=== PATIENT | male | born 1930 | race Caucasian/White ===

== ENCOUNTER → 2017-01-13 | Outpatient (CLI) | payer OTHER | LOC: FIMAGING 14:58 | PROVIDERS: ATTEND Nurse Practitioner Family | DX: M25.511 Pain in right shoulder (principal) ==

== ENCOUNTER 2017-11-07 16:48 | Observation (INO) | payer OTHER ==
--- NOTE | 2017-11-07 16:55 | EDPHY ---
HPI/HX/ROS/PE/MDM Narrative: CHIEF COMPLAINT: Weakness and fever HISTORY OF PRESENT ILLNESS: The patient is an 86 y/o male with a history of neuropathy arriving via EMS for weakness and a fever. EMS was initially called to the patient's home for a lift assist as the patient was too weak to get out of the bathtub. Per his son, the patient can normally move around without difficulty. While en route to the emergency department the patient was febrile with a temperature of 101 and his BGL was 71. He was also given 1L IV NS. He currently does not believe he is febrile but does feel weaker than normal. The patient did not eat lunch today as he was not hungry. Patient also does report that his house was quite warm today and they were not running the air conditioner. He denies history of MD, stents, diabetes, asthma, emphysema. No chills, chest pain, shortness of breath, palpitations, vomiting, diarrhea, urinary complaints, headache, lightheadedness. REVIEW OF SYSTEMS: Aside from elements discussed in the HPI, a comprehensive 10-point review of systems was reviewed and is negative. PAST MEDICAL HISTORY: Neuropathy SOCIAL HISTORY: at bedside, lives in [place], retired, no alcohol or tobacco use VITAL SIGNS: Temperature: 37.9 degrees GENERAL: Well-developed, well-nourished, resting comfortably in no respiratory distress. Alert. Reports just feeling very weak. HEENT: Atraumatic. Eyes: No icterus, no injection. Mouth: dry mucous membranes. Discharge in posterior oropharynx. No erythema or lesions. Neck: supple with no adenopathy. LUNGS: Faint crackles at left base. No wheezes, rhonchi or rales. CARDIAC: Regular rate and rhythm, no rubs, murmurs or gallops. ABDOMEN: Soft, nontender, nondistended, bowel sounds normal. BACK: No CVA tenderness. EXTREMITIES: No trauma. No edema. Range of motion is normal throughout. NEURO: Alert and oriented, grossly nonfocal. SKIN: Warm to the touch, dry, no rash. PSYCHIATRIC: Normal mentation, no agitation. Portions of this note were transcribed by a medical office worker. I personally performed a history, physical exam, medical decision making, and confirmed accuracy of information the transcribed note. ED Course: The patient is an 86 y/o male with a history of neuropathy arriving via EMS for weakness and a fever. On exam he has a temperature of 37.9 degrees and appears weak and fatigued. EKG, chest x-ray, and labs ordered; 1L IV NS administered. 165: 12-LEAD EKG: Please see the full report in [facility]. My interpretation: Sinus rhythm with a rate of 81, consider posterior infarct. 1703: Repeat EKG with posterior leads V8 and V9 demonstrate no posterior ischemia. 1730: Patient's troponin is 0. He has a normal white count. His lactic acid was elevated at 2.1. He received fluids in this decreased to 1.7. I do not believe the patient actually was septic and do not believe that he is minimally elevated lactic acid represents severe sepsis. He has not had a fever while he was here in the emergency department. We have found no infectious etiology on our evaluation. 174: I reviewed patient's chest x-ray; no acute infiltrate. 1844: Reassessed patient, he looks better. I have discussed the laboratory findings with the patient. The patient's son is now in the room. Per his son, the patient has been weaker for the past 4-5 days associated with decreased memory status. He is unsure if the patient had a fever this past week. Patient received additional fluids. We are awaiting a urinalysis. 1948: Urinalysis demonstrates no signs of infection. Patient did try to ambulate in the emergency department and certainly is stronger than he has been previously but is too weak to do much more than take a few steps. He and his son are both uncomfortable with a plan of discharge. 2024: Consulted with hospitalist service, Dr. Villa accepts admission of this patient. Sepsis Evaluation Note: The patient presents to the ED with potential fever. He was afebrile in the emergency department. He has a normal white count, normal heart rate, and a lactic acid of 2.1. He did receive fluids as lactic acid diminished to 1.7. I do not believe this represents severe septicemia as we have found no infectious etiology on our evaluation. Patient has significantly improved with fluids. He has remained afebrile in the emergency department. - Data Points Imaging: Discussed imaging studies w/ yardage caller Radiologist, I viewed and interpreted images myself Laboratory Results: Laboratory Results 11/07/17 17:13 11/07/17 17:13 Medications Given: Discontinued Medications Dutasteride (Avodart) 0.5 mg PO DAILY [facility] Stop: 05/07/18 08:59 Last Admin: 11/08/17 08:56 Dose: 0.5 mg Gabapentin (Neurontin) 300 mg PO DAILY [facility] Stop: 05/07/18 08:59 Last Admin: 11/08/17 08:55 Dose: 300 mg Sodium Chloride (Ns) 1,000 mls @ 0 mls/hr IV ONCE ONE; Wide Open PRN Reason: Protocol Stop: 11/07/17 17:18 Last Admin: 11/07/17 17:30 Dose: 1,000 mls Sodium Chloride (Ns) 2,100 mls @ 4,200 mls/hr 30 ml/kg infuse over 30 min ( 2100 ml) IV EDNOW ONE PRN Reason: Protocol Stop: 11/07/17 19:12 Last Admin: 11/07/17 18:43 Dose: 2,100 mls Losartan Potassium (Cozaar) 50 mg PO DAILY [facility] Stop: 05/07/18 08:59 Last Admin: 11/08/17 08:55 Dose: 50 mg Point of Care Test Results: Chemistry 11/07/17 17:19 POC Troponin I 0.00 ng/mL ng/mL (0.00-0.08) General Time Seen by Provider: 11/07/17 16:50 Initial Vital Signs: Initial Vital Signs Temperature (C) 37.9 C 11/07/17 16:48 Heart Rate 83 11/07/17 16:48 Respiratory Rate 12 11/07/17 16:48 Blood Pressure 122/70 H 11/07/17 16:48 O2 Sat (%) 94 11/07/17 16:48 O2 Delivery Mode Room Air O2 (L/minute) 2 Allergies/Adverse Reactions: No Known Allergies Allergy (Unverified 01/17/12 09:28) Home Medications: Medication Instructions Recorded Dutasteride [Avodart 0.5 MG (*)] 0.5 mg PO DAILY 11/07/17 Gabapentin [Neurontin 300 MG (*)] 300 mg PO DAILY 11/07/17 Losartan Potassium [Cozaar 50 mg 50 mg PO DAILY 11/07/17 (*)] Acetaminophen [Tylenol 325mg (*)] 650 mg PO Q4HRS PRN tab 06/10/18 Departure - Departure Disposition: [facility] Acute Clinical Impression: Weakness Fever Qualifiers: Fever type: due to other condition Qualified Code(s): R50.81 - Fever presenting with conditions classified elsewhere Condition: Fair Report Scribed for: Ester Molina Report Scribed by: Niharika Jimenez Date of Report: 11/07/17 Time of Report: 16:51
--- NOTE | 2017-11-07 16:59 | CPEKG ---
Heart Rate: 81 RR Interval: 741 P-R Interval: 152 QRSD Interval: 88 QT Interval: 384 QTC Interval: 446 P [place]: 84 QRS [place]: -9 T Wave [place]: 15 EKG Severity - ABNORMAL ECG - EKG Impression: SINUS RHYTHM EKG Impression: CONSIDER POSTERIOR INFARCT Electronically Signed By: Ester Molina 07-Nov-2017 17:21:28
--- NOTE | 2017-11-07 17:13 | CPEKG ---
Heart Rate: 77 RR Interval: 779 P-R Interval: 164 QRSD Interval: 86 QT Interval: 380 QTC Interval: 431 P [place]: 90 QRS [place]: 7 T Wave [place]: 20 EKG Severity - NORMAL ECG - EKG Impression: SINUS RHYTHM EKG Impression: POSTERIOR LEADS V8 AND V9 EKG Impression: NO ISCHEMIA NOTED IN POSTERIOR LEADS Electronically Signed By: Ester Molina 07-Nov-2017 17:21:20
[2017-11-07] MEDS ORDERED: NS 1,000 ML IV ONE (17:17)
[2017-11-07 17:37] LABS: PLATELET COUNT 214 10^3/uL (150-400)
[2017-11-07 17:38] LABS: INR 1.22 (0.83-1.16); PROTIME(PATIENT) 15.6 SEC (12.0-15.0)
[2017-11-07] MEDS ORDERED: NS 2,100 ML IV ONE (18:43)
[2017-11-07] MEDS ORDERED: ONDANSETRON DISINTEGRATING 4 MG TAB PO PRN (20:46)
[2017-11-07] MEDS ORDERED: ONDANSETRON 4 MG/2 ML VIAL IVP PRN (20:46)
[2017-11-07] MEDS ORDERED: ACETAMINOPHEN 325 MG TAB PO PRN (20:46)
--- NOTE | 2017-11-07 21:54 | GHP ---
[f rep st] HISTORY AND PHYSICAL DATE OF ADMISSION: 11/07/2017 CHIEF COMPLAINT: Weak. HISTORY OF PRESENT ILLNESS: This is an 86-year-old man who presents with weakness. He was unable to get out of the bath today and called paramedics for a lift assist. He says that the weakness was gl obal, not confined to one arm or one leg. Paramedics reported a fever of 101, though this was, I bel ieve, taken right as he got out of the bath. He denies having had any fevers or any other infectious symptoms including cough, skin lesions, dysuria. He is not having any chest pain or other shortness of breath either. He attributes this to dehydration though he states that he may have not been drin davi enough water. He has no other real reason to be dehydrated including nausea, vomiting or diarrh ea. PAST MEDICAL/SURGICAL HISTORY: 1. Neuropathy. 2. Hypertension. 3. BPH. MEDICATIONS: Please see medication reconciliation. ALLERGIES: No known drug allergies. SOCIAL HISTORY: He does not drink or smoke. He used to be an excellent racquetball player and was s econd in the [employer] in 2000. He lives at home with his . FAMILY HISTORY: Reviewed and noncontributory. REVIEW OF SYSTEMS: 10-point review of systems is conducted and is negative except per HPI. PHYSICAL EXAM: VITAL SIGNS: Blood pressure 149/73. Heart rate 71. Respiration rate 20. Saturatin g 96% on room air. Temperature is 37.1. GENERAL: The patient is a very pleasant man who is resting comfortably in no acute distress. HEENT: Shows him to be normocephalic, atraumatic. CARDIOVASCULA R: Regular rate and rhythm. There are no murmurs, rubs, or gallops. PULMONARY: Lungs clear to aus cultation bilaterally. ABDOMEN: Soft, nontender, nondistended. There are normal bowel sounds prese nt. SKIN: Shows no rashes or cellulitis. RHEUMATOLOGIC: Shows no joint effusions or joint erythem a. : Shows no B[place]. NEUROLOGIC: Shows him to be alert and oriented x3. Cranial nerves 2 throu gh 12 are intact. Motor is intact in the upper and lower extremities. Sensation to light touch is i ntact in the upper and lower extremities. He has a nonfocal neurologic exam. PSYCHIATRIC: Shows no rmal mood and affect. LABS: Bicarb is 20. Otherwise, basic metabolic panel is normal. Troponin is negative. Lactate 1.8 . INR is 1.2. CBC is normal. Urinalysis shows 3+ mucus, 1+ glucose, and trace ketones. Otherwise unremarkable. DATA: 1. Chest x-ray, which I personally viewed and interpreted, shows normal-sized heart. There are no a cute infiltrates. 2. He has had 2 EKGs, both of which I interpreted. These show sinus rhythm. There is nothing acute ly ischemic. IMPRESSION AND PLAN: 1. Weakness: Large differential though nothing clearly declaring itself. I note that he is mildly acidotic. He attributes this to dehydration. So far, infectious workup has been negative, cardiac w orkup also negative. Does not appear to be in acute stroke given lack of focal findings. I think pl acing him in observation and monitoring him. His blood cultures are pending at this time. I will gimenez ve him evaluated by Physical Therapy and Occupational Therapy in the morning. Check a thyroid-stimul ating hormone. Recheck his basic metabolic panel tomorrow morning. Recheck a troponin in the [facility] as well. 2. Acidosis: Could be consistent with dehydration. Will recheck this after hydration. 3. Hypertension: Will continue his losartan. 4. BPH: Will continue his prostate medications. 5. Code status: He would like to be a full code. I discussed this with him. 6. Venous thromboembolism risk is moderate, though he is observation. Will not start any prophylaxi s. /[id number]/MODL
[2017-11-08] MEDS ORDERED: LOSARTAN POTASSIUM 50 MG TAB PO SCH (09:00)
[2017-11-08] MEDS ORDERED: DUTASTERIDE 0.5 MG CAP PO SCH (09:00)
[2017-11-08] MEDS ORDERED: GABAPENTIN 300 MG CAP PO SCH (09:00)
[2017-11-08 12:01] VITALS: BP 131/83
--- NOTE | 2017-11-08 12:39 | HOSPPROG ---
Hospitalist Progress Note Assessment/Plan: Patient is an 86-year-old man who presented the emergency room with weakness. He was in the bath and could not get out of it. He called EMT to help get him out of bed paramedics reported fever of 101 but this was after he got out of the bathtub. Today is my 1st encounter with the patient chart reviewed. * acute weakness -he has been afebrile, CBC is stable -troponin is stable, TSH is stable -ua shows no infection -therapies are recommending home w 24 hour home care -there is care for his at home -recommend PT and OT home care * acidosis -mild, eating and drinking well today * hypertension -stable * BPH *Plan: dc home w home care, attempted to speak with his son, Romulo, to update him. Our call got disconnected and then no answer, message left. Subjective: Jose Daniel is feeling well, anxious to go home. Objective: Vital Signs Temp Pulse Resp BP Pulse Ox 36.6 C 69 24 H 131/83 H 96 11/08/17 11:58 11/08/17 11:58 11/08/17 11:58 11/08/17 11:58 11/08/17 11:58 Laboratory Results 11/08/17 04:35 11/07/17 11/08/17 11/09/17 05:59 05:59 05:59 Intake Total 2100 Balance 2100 PT 15.6 SEC (12.0-15.0) H 11/07/17 17:13 INR 1.22 (0.83-1.16) H 11/07/17 17:13 - Physical Exam Constitutional: no apparent distress, appears nourished, not in pain Eyes: PERRL Ears, Nose, Mouth, Throat: hearing normal, other (wears glasses) Cardiovascular: regular rate and rhythym Respiratory: no respiratory distress Gastrointestinal: normoactive bowel sounds Skin: warm Musculoskeletal: generalized weakness Neurologic: AAOx3 Psychiatric: interacting appropriately ICD10 Worksheet Patient Problems: Problems Problem Status Onset Fever Acute Weakness Acute
--- NOTE | 2017-11-08 13:46 | ASMTLACE ---
SAMANTHAE Length of stay for Answers: 1 day current admission Acuity / Level of Answers: No Care: Did the patient have an inpatient admission? Comorbidities - select Answers: Other Notes: Weakness, Dehydration all that apply # of Emergency department Answers: 1-2 visits in the last 6 months Score: 3 Date Signed: 11/08/2017 01:46 PM Electronically Signed By:Kiley Pruitt LCSW
--- NOTE | 2017-11-08 13:51 | ASMTCMCOM ---
CM Note CM Note Notes: 86yr old male admitted for weakness, dehydration after not being able to get out of the tub. He has a Hx of neuropathy, HTN, BPH. Lives with his , who has 24hr caregivers. Therapies are recommending HC. Contacted [facility] and they can start services Thursday. Spoke with his son, Romulo, who prefers that his father stop driving. Patient will be home bound for a few weeks while he is with HC so he won't be driving during that time. This info given to son. Date Signed: 11/08/2017 01:50 PM Electronically Signed By:Kiley Pruitt LCSW
--- NOTE | 2017-11-08 13:55 | PDIAF ---
- Diagnosis Diagnosis: weakness Code Status: Full Code - Medication Management Discharge Medications: Medications to Continue on Transfer Dutasteride [Avodart 0.5 MG (*)] 0.5 mg PO DAILY 11/07/17 [Last Taken 11/07/17] Gabapentin [Neurontin 300 MG (*)] 300 mg PO DAILY 11/07/17 [Last Taken 11/07/17] Losartan Potassium [Cozaar 50 mg (*)] 50 mg PO DAILY 11/07/17 [Last Taken ] Acetaminophen [Tylenol 325mg (*)] 650 mg PO Q4HRS PRN tab 11/08/17 [Last Taken Unknown] Discharge Medications: Refer to the Discharge Home Medication list for PRN reason. - Orders Services needed: Home Care, Physical Therapy, Occupational Therapy Home Care Face to Face: I certify that this patient was under my care and that I had the required [id number] encounter meeting the encounter requirements on the discharge day. My findings support the fact that the patient is homebound as defined in Home Care Face to Face Continued: CMS Chapter 7 Medicare Benefits Manual 30.1.1 , The condition of the patient is such that there exists a normal inability to leave home and consequently, leaving home would require a considerable and taxing effort. Diet Recommendation: no restrictions on diet Diet Texture: Regular Texture Diet Additional Instructions: Follow-up with your primary doctor Return to the Emergency Department for fever, chest pain, shortness of breath, increasing pain or other worsening of condition. Home care PT and OT to follow up with your recommending no driving until you get clearance with your primary care provider stay well hydrated and eat well, avoid taking baths, showers are better take good care of yourself - Follow Up Care Current Providers and Referrals: Frances Luther MD [Primary Care Provider] - As per Instructions
--- NOTE | 2017-11-08 14:14 | ASDISCHSUM ---
Discharge Information Plan Status:Home with Home Health Medically Cleared to Leave:11/08/2017 Discharge Date:11/08/2017 CM D/C Disposition:Home Health Service ADT D/C Disposition: Projected Discharge Date:11/08/2017 02:00 PM Transportation at D/C:Family Discharge Delay Reason: Follow-Up Date:11/08/2017 02:00 PM Discharge Slot:2 - 12:01 pm - 18:00 pm Final Diagnosis:Weakness, Dehydration Placement Information Referral Type:*Home Health Care Services Referral ID:[id number] Provider Name:[facility] [place] Address 1:[address] Phone Number: Address 2: Fax Number: City:[place] Selection Factors: State:[place] Patient Contact Information Contact Name:RICHYEISON Relationship: Address:[address] City:[place] Alternate Phone: State/Zip Code:[place] [address] Email: Financial Information Financial Class:Medicare Advantage Plans Primary Plan Desc:[employer] MEDICARE ADV Primary Plan Number:[id number] Secondary Plan Desc: Secondary Plan Number: Assessment Information LACE LACE Length of stay for Answers: 1 day current admission Acuity / Level of Answers: No Care: Did the patient have an inpatient admission? Comorbidities - select Answers: Other Notes: Weakness, Dehydration all that apply # of Emergency department Answers: 1-2 visits in the last 6 months Score: 3 Date Signed: 11/08/2017 01:46 PM Electronically Signed By:Kiley Pruitt LCSW [facility] CM Progress Note CM Note CM Note Notes: 86yr old male admitted for weakness, dehydration after not being able to get out of the tub. He has a Hx of neuropathy, HTN, BPH. Lives with his , who has 24hr caregivers. Therapies are recommending HC. Contacted [facility] and they can start services Thursday. Spoke with his son, Romulo, who prefers that his father stop driving. Patient will be home bound for a few weeks while he is with so he won't be driving during that time. This info given to son. Date Signed: 11/08/2017 01:50 PM Electronically Signed By:Kiley Pruitt LCSW Case Management Discharge Plan Note Case Management Discharge Discharge Order Complete? Answers: Yes Patient to Obtain Answers: via Family Medications Transportation Arranged Answers: Family/Friends Transport will Pick (Date 11/08/2017 02:30 PM & Time) Faxed Final Orders Answers: Yes Notes: [facility] Family Notified Answers: Yes Notes: Soke to pts sonRomulo Discharge Comments Notes: Patient has been discharged home with [facility]-PT/OT. Patient's has 24 hr care at home. Date Signed: 11/08/2017 02:13 PM Electronically Signed By:Kiley Pruitt LCSW Intervention Information
--- NOTE | 2017-11-08 14:27 | GDS ---
[f rep st] DISCHARGE SUMMARY DISCHARGE DIAGNOSES: 1. Acute weakness. 2. Acidosis. 3. Hypertension. 4. Benign prostatic hypertrophy. HISTORY OF PRESENT ILLNESS: Briefly, the patient is an 86-year-old male who presented with weakness. He was unable to get out of the bath and called paramedics for a lift assist. His weakness was not global or confined to one area in his body. Paramedics reported a fever 101, but he was getting out of the tub. He was admitted and evaluated for any infectious etiology. He does not have any. He w as seen by Physical Therapy and Occupational therapy, who recommended 24 hour care. This is already placed at his home due to his needing 24 hour care. HOSPITAL COURSE: 1. Acute weakness. He has been afebrile. Troponin is stable. TSH is stable. UA shows no infectio n. I reviewed his EKG, which showed sinus rhythm. Home care has been ordered. 2. Acidosis. This is mild. I suspect he was not eating and drinking well yesterday. 3. Hypertension, stable. 4. Benign prostatic hypertrophy. Home medications resumed. DISCHARGE CONDITION: Stable. Blood pressure is 131/83, heart rate is 69, respiratory rate of 20, O2 sats are 96%, temperature is 36.6 Celsius. DISCHARGE MEDICATIONS: Please see the EMR. DISCHARGE INSTRUCTIONS: 1. Follow up with his primary doctor. 2. Return to the ER if he develops chest pain, shortness of breath, or increasing pain. 3. Home Care will follow up with him. 4. Recommend that he do not drive until he gets clearance by his primary care provider. He should b e further evaluated for this. 5. To stay well hydrated and avoid taking baths. /[id number]/MODL
== END 2017-11-08 14:45 | disposition home health service (06) ==
LOC: EDUNIT# → F3E 21:12
PROVIDERS: ADMIT Student in an Organized Health Care Education/Training Program; ATTEND Internal Medicine
DX: R53.1 Weakness (principal); E86.0 Dehydration; E87.2 Acidosis; I10 Essential (primary) hypertension; N40.0 Benign prostatic hyperplasia without lower urinary tract symptoms; G62.9 Polyneuropathy, unspecified
CPT/HCPCS: 71046; 93005; 97116; 97161; 97165; G0378; G8987; G8988; 84484-PO

== ENCOUNTER 2018-09-17 18:30 | Inpatient (IN) | payer OTHER ==
[2018-09-17] MEDS ORDERED: NS 2,000 ML IV ONE (18:49)
[2018-09-17] MEDS ORDERED: ACETAMINOPHEN 500 MG TAB PO ONE (18:51)
--- NOTE | 2018-09-17 18:54 | EDPHY ---
H & P Stated Complaint: weakness, ams, feels dehydrated Time Seen by Provider: 09/17/18 18:41 HPI/ROS: CHIEF COMPLAINT: Fever, generalized weakness HISTORY OF PRESENT ILLNESS: The patient is an 87-year-old man who developed fevers chills and generalized weakness this afternoon. He had felt well this morning yesterday. His son also noticed labored breathing. The patient denies having any pain. He denies any nausea vomiting or diarrhea. He had no rashes. No urinary symptoms. No recent upper respiratory symptoms. No headache. He does have a recent diagnosis of atrial fibrillation and is now on Eliquis. He denies dark or bloody stool. Severity: moderate Modifying factors: None REVIEW OF SYSTEMS: Constitutional: See HPI EENTM: denies: blurred vision, double vision, nose congestion Respiratory: denies: cough Cardiac: denies: chest pain, irregular heart rate, lightheadedness, palpitations Gastrointestinal/Abdominal: denies: abdominal pain, diarrhea, nausea, vomiting, blood streaked stools Genitourinary: denies: dysuria, frequency, hematuria, pain Musculoskeletal: denies: joint pain, muscle pain Skin: denies: lesions, rash, jaundice, bruising Neurological: denies: headache, numbness, paresthesia, tingling, dizziness Hematologic/Lymphatic: denies: blood clots, easy bleeding, easy bruising Immunologic/allergic: denies: HIV/AIDS, transplant 10 systems reviewed and negative except as noted EXAM: GENERAL: Shaking, fever, answers questions appropriately HEAD: Atraumatic, normocephalic. EYES: Pupils equal round and reactive to light, extraocular movements intact, sclera slightly icteric ENT: TMs normal, nares patent, oropharynx clear without exudates. Moist mucous membranes. NECK: Normal range of motion, supple without lymphadenopathy or JVD. LUNGS: Breath sounds clear to auscultation bilaterally and equal. No wheezes rales or rhonchi. HEART: Regular rate and rhythm without murmurs, rubs or gallops. ABDOMEN: Soft, nontender, normoactive bowel sounds. No guarding, no rebound. No masses appreciated. BACK: No CVA tenderness, no spinal tenderness, step-offs or deformities EXTREMITIES: Normal range of motion, no pitting or edema. No clubbing or cyanosis. NEUROLOGICAL: Cranial nerves II through XII grossly intact. Normal speech, normal gait. 5/5 strength, normal movement in all extremities, normal sensation , normal reflexes PSYCH: Normal mood, normal affect. SKIN: Warm, dry, normal turgor, no visible rashes or lesions. Source: Patient Exam Limitations: No limitations - Personal History Current Tetanus/Diphtheria Vaccine: Unsure Current Tetanus Diphtheria and Acellular Pertussis (TDAP): Unsure - Medical/Surgical History Hx Asthma: No Hx Chronic Respiratory Disease: No Hx Diabetes: No Hx Cardiac Disease: No Hx Renal Disease: No Hx Cirrhosis: No Hx Alcoholism: No Hx HIV/AIDS: No Hx Splenectomy or Spleen Trauma: No Other PMH: nasal surgery, appy, esophageal repair, neuropathy, HTN, afib, recent hospital stay - Family History Significant Family History: No pertinent family hx - Social History Smoking Status: Never smoked Constitutional: Initial Vital Signs Temperature (C) 39.4 C H 09/17/18 18:40 Heart Rate 99 09/17/18 18:40 Respiratory Rate 25 H 09/17/18 18:40 Blood Pressure 136/69 H 09/17/18 18:40 O2 Sat (%) 91 L 09/17/18 18:40 O2 Delivery Mode Room Air O2 (L/minute) 2 Allergies/Adverse Reactions: No Known Allergies Allergy (Verified 01/05/18 08:10) Home Medications: Medication Instructions Recorded Dutasteride [Avodart 0.5 MG (*)] 0.5 mg PO DAILY 11/07/17 C/E/Zn/Cu/OM3/DHA/EPA/LUT/ZEAX 1 each PO BID 12/16/17 [Preservision Areds 2 Softgel] Apixaban [Eliquis] 5 mg PO BID #60 tab 12/17/17 Diltiazem [Cardizem 60 MG (*)] 60 mg PO DAILY #30 tab 01/05/18 Bimatoprost 0.01% [Lumigan 0.01% 1 drops EACHEYE HS 09/17/18 (*)] SIMVASTATIN 10 mg PO HS 09/17/18 Medical Decision Making - Diagnostics EKG Interpretation: An EKG obtained and was read and documented in trace view. Please see trace view for full reading and report. Sinus rhythm, no acute ischemic changes Imaging: Discussed imaging studies w/ urologist Radiologist ED Course/Re-evaluation: Patient is severe sepsis. He has responded well to IV fluids. No obvious source of infection although his bilirubin is significantly elevated. Bedside ultrasound reveals multiple gallstones and thickened gallbladder wall. No free air. Common bile duct normal size. Discussed with Dr. Diaz who will admit. I have paged surgery. I will broaden the antibiotic spectrum. 8:45 p.m. I discussed the case with Dr. Rodriguez who will consult. She suspects that the gallbladder is the source of his infection. She recommends reversal of his Eliquis and likely ERCP prior to surgery. I discussed with the ED pharmacist who recommends adding Flagyl. We also agreed to wait for his Eliquis to wear off rather than reversing at this time with [facility] because the surgery is not emergent and for cost reasons. Differential Diagnosis: Partial list of the Differential diagnosis considered include but were not limited to; sepsis, influenza, bronchitis, cholecystitis, urinary tract infection and although unlikely based on the history and physical exam, I also considered pneumonia, meningitis. - Data Points Laboratory Results: Laboratory Results 09/17/18 18:30 09/17/18 18:30 Microbiology Results: MICROBIOLOGY 09/17/18 18:50 Blood Blood Culture - Preliminary Gram Negative Riccardo 09/17/18 18:50 Blood Blood Panel (PCR) - Final Escherichia Coli Medications Given: Diltiazem HCl (Cardizem Immediate Release) 60 mg PO DAILY [facility] Stop: 03/17/19 08:59 Last Admin: 09/18/18 09:45 Dose: 60 mg Dutasteride (Avodart) 0.5 mg PO DAILY [facility] Stop: 03/17/19 08:59 Last Admin: 09/18/18 09:45 Dose: 0.5 mg Ertapenem 1 gm/ Sodium (Chloride) 100 mls @ 200 mls/hr IV DAILY@2100 [facility] PRN Reason: Protocol Stop: 10/17/18 21:44 Last Admin: 09/17/18 22:11 Dose: 100 mls Sodium Chloride (Ns) 1,000 mls @ 125 mls/hr IV CONT [facility] Stop: 03/16/19 21:44 Last Admin: 09/18/18 07:21 Dose: 1,000 mls Discontinued Medications Acetaminophen (Tylenol) 1,000 mg PO EDNOW ONE Stop: 09/17/18 18:52 Last Admin: 09/17/18 19:05 Dose: 1,000 mg Sodium Chloride (Ns) 2,000 mls @ 4,000 mls/hr 30 ml/kg infuse over 30 min ( 2000 ml) IV EDNOW ONE PRN Reason: Protocol Stop: 09/17/18 19:18 Last Admin: 09/17/18 19:04 Dose: 2,000 mls Ceftriaxone Sodium/Dextrose (Rocephin 1 Gm (Premix)) 50 mls @ 100 mls/hr IV EDNOW ONE PRN Reason: Protocol Stop: 09/17/18 19:44 Last Admin: 09/17/18 19:31 Dose: 50 mls Metronidazole/Sodium Chloride (Flagyl 500 Mg (Premix)) 100 mls @ 100 mls/hr IV EDNOW ONE Stop: 09/17/18 21:59 Last Admin: 09/17/18 20:58 Dose: 100 mls Ibuprofen (Motrin) 800 mg PO EDNOW ONE Stop: 09/17/18 19:57 Last Admin: 09/17/18 20:08 Dose: 800 mg Potassium Chloride (Klor-Con) 40 meq PO ONCE ONE Stop: 09/18/18 07:11 Last Admin: 09/18/18 07:21 Dose: 40 meq Potassium Chloride (Klor-Con) 40 meq PO ONCE ONE Stop: 09/18/18 08:47 Last Admin: 09/18/18 10:00 Dose: Not Given Departure - Departure Disposition: [facility] Inpatient Acute Clinical Impression: Severe sepsis, Cholecystitis Condition: Fair
[2018-09-17 19:07] LABS: PLATELET COUNT 164 10^3/uL (150-400)
--- NOTE | 2018-09-17 19:18 | CPEKG ---
Test Reason : OPEN Blood Pressure : / mmHG Vent. Rate : 096 BPM Atrial Rate : 096 BPM P-R Int : 163 ms QRS Dur : 092 ms QT Int : 336 ms P-R-T Axes : 045 -08 013 degrees QTc Int : 425 ms Atrial fibrillation Confirmed by Earlene Ott ([id number]) on 09/17/2018 7:17:37 PM Referred By: EARLENE OTT Confirmed By:Earlene Ott
[2018-09-17 19:31] LABS: INR 1.6 (0.83-1.16); PROTIME(PATIENT) 18.3 SEC (12.0-15.0)
[2018-09-17] MEDS ORDERED: IBUPROFEN 800 MG TAB PO ONE (19:56)
[2018-09-17] MEDS ORDERED: PROMETHAZINE HCL 25 MG/ML INJ IVP PRN (21:41)
[2018-09-17] MEDS ORDERED: ONDANSETRON DISINTEGRATING 4 MG TAB PO PRN (21:41)
[2018-09-17] MEDS ORDERED: ONDANSETRON 4 MG/2 ML VIAL IVP PRN (21:41)
[2018-09-17] MEDS ORDERED: HYDROmorphONE/DILAUDID 1 MG/ML INJ IVP PRN (21:41)
[2018-09-17] MEDS ORDERED: oxyCODONE IR 5 MG TAB PO PRN (21:41)
[2018-09-17] MEDS ORDERED: HYDROCODONE/APAP 5/325 TAB PO PRN (21:41)
[2018-09-17] MEDS ORDERED: ACETAMINOPHEN 325 MG TAB PO PRN (21:41)
--- NOTE | 2018-09-17 21:46 | PDGENHP ---
History and Physical - Chief Complaint fever/weakness - History of Present Illness 87 yo M with PMH of a fib, BPH presenting from home with fever and weakness. Symptoms developed today apparently, he denies really any localizing complaints- -no abdominal pain, no n/v, no diarrhea, no cough or sob, no dysuria, no skin changes, no [place]. He does feel very weak and tired but no real confusion. Son notes that his father never really complains of anything. Patient states he would like to sleep but otherwise no complaints. In ER found to be febrile to 104, tachycardic with elevated LFTS and US notable for gallstones and e/o chronic cholecystitis. General surgery consulted and evaluated patient, will follow along for possible cholecystectomy. History Information - Allergies/Home Medication List Allergies/Adverse Reactions: No Known Allergies Allergy (Verified 01/05/18 08:10) Home Medications: Dutasteride [Avodart 0.5 MG (*)] 0.5 mg PO DAILY 11/07/17 [Last Taken 09/17/18] C/E/Zn/Cu/OM3/DHA/EPA/LUT/ZEAX [Preservision Areds 2 Softgel] 1 each PO BID [Last Taken 09/17/18] Bimatoprost 0.01% [Lumigan 0.01% (*)] 1 drops EACHEYE HS 09/17/18 [Last Taken Unknown] SIMVASTATIN 10 mg PO HS 09/17/18 [Last Taken Unknown] I have personally reviewed and updated: family history, medical history, social history, surgical history - Past Medical History atrial fibrillation, hypertension Additional medical history: Atrial fibrillation on Eliquis and Cardizem, BPH, neuropathy, HTN, hyponatremia - Surgical History Additional surgical history: Appendectomy, esophageal repair - Family History Positive for: non-pertinent Additional family history: Son-vascular disease - Social History Smoking Status: Never smoked Alcohol Use: None Drug Use: None Additional social history: Patient is lives with his . They have nighttime [employer] in the home. Cor status-full. Review of Systems Review of Systems: ROS: 10pt was reviewed & negative except for what was stated in HPI & below Physical Exam Physical Exam: Temp Pulse Resp BP Pulse Ox 37.1 C 72 24 H 99/48 L 92 09/17/18 21:29 09/17/18 21:29 09/17/18 21:29 09/17/18 21:29 09/17/18 21:29 Constitutional: appears nourished, chronically ill appearing Eyes: PERRL, anicteric sclera Ears, Nose, Mouth, Throat: hearing normal, dry mucous membranes Cardiovascular: systolic murmur, tachycardia, No edema Respiratory: reduced air movement, bronchial breath sounds Gastrointestinal: normoactive bowel sounds, soft, non-tender abdomen Genitourinary: no bladder tenderness Skin: warm, normal color Musculoskeletal: generalized weakness, No asymmetric calves Neurologic: AAOx3 Psychiatric: interacting appropriately, not anxious, other (somnolent) Lab Data & Imaging Review 09/17/18 18:30 09/17/18 18:30 WBC 3.96 10^3/uL (3.80-9.50) 09/17/18 18:30 RBC 4.14 10^6/uL (4.40-6.38) L 09/17/18 18:30 Hgb 12.8 g/dL (13.7-17.5) L 09/17/18 18:30 Hct 37.8 % (40.0-51.0) L 09/17/18 18:30 MCV 91.3 fL (81.5-99.8) 09/17/18 18:30 MCH 30.9 pg (27.9-34.1) 09/17/18 18:30 MCHC 33.9 g/dL (32.4-36.7) 09/17/18 18:30 RDW 12.4 % (11.5-15.2) 09/17/18 18:30 Plt Count 164 10^3/uL (150-400) 09/17/18 18:30 MPV 10.1 fL (8.7-11.7) 09/17/18 18:30 Neut % (Auto) 89.0 % (39.3-74.2) H 09/17/18 18:30 Lymph % (Auto) 7.1 % (15.0-45.0) L 09/17/18 18:30 [place] % (Auto) 2.8 % (4.5-13.0) L 09/17/18 18:30 Eos % (Auto) 0.3 % (0.6-7.6) L 09/17/18 18:30 Baso % (Auto) 0.0 % (0.3-1.7) L 09/17/18 18:30 Nucleat RBC Rel Count 0.0 % (0.0-0.2) 09/17/18 18:30 Absolute Neuts (auto) 3.52 10^3/uL (1.70-6.50) 09/17/18 18:30 Absolute Lymphs (auto) 0.28 10^3/uL (1.00-3.00) L 09/17/18 18:30 Absolute Monos (auto) 0.11 10^3/uL (0.30-0.80) L 09/17/18 18:30 Absolute Eos (auto) 0.01 10^3/uL (0.03-0.40) L 09/17/18 18:30 Absolute Basos (auto) 0.00 10^3/uL (0.02-0.10) L 09/17/18 18:30 Absolute Nucleated RBC 0.00 10^3/uL (0-0.01) 09/17/18 18:30 Immature Gran % 0.8 % (0.0-1.1) 09/17/18 18:30 Immature Gran # 0.03 10^3/uL (0.00-0.10) 09/17/18 18:30 RBC/WBC/PLT Morphology TNP 09/17/18 18:30 Platelet Estimate TNP 09/17/18 18:30 PT 18.3 SEC (12.0-15.0) H 09/17/18 18:30 INR 1.60 (0.83-1.16) H 09/17/18 18:30 APTT 33.2 SEC (23.0-38.0) 09/17/18 18:30 VBG Lactic Acid 2.1 mmol/L (0.7-2.1) 09/17/18 18:50 Sodium 133 mEq/L (135-145) L 09/17/18 18:30 Potassium 3.9 mEq/L (3.5-5.2) 09/17/18 18:30 Chloride 102 mEq/L (97-110) 09/17/18 18:30 Carbon Dioxide 20 mEq/l (22-31) L 09/17/18 18:30 Anion Gap 11 mEq/L (6-14) 09/17/18 18:30 BUN 23 mg/dL (7-23) 09/17/18 18:30 Creatinine 1.0 mg/dL (0.7-1.3) 09/17/18 18:30 Estimated GFR > 60 09/17/18 18:30 Glucose 96 mg/dL (70-100) 09/17/18 18:30 Calcium 8.7 mg/dL (8.5-10.4) 09/17/18 18:30 Total Bilirubin 5.0 mg/dL (0.1-1.4) H 09/17/18 18:50 Conjugated Bilirubin 3.8 mg/dL (0.0-0.5) H 09/17/18 18:50 Unconjugated Bilirubin 1.2 mg/dL (0.0-1.1) H 09/17/18 18:50 AST 168 IU/L (17-59) H 09/17/18 18:50 ALT 240 IU/L (21-72) H 09/17/18 18:50 Alkaline Phosphatase 168 IU/L (38-126) H 09/17/18 18:50 Total Protein 6.3 g/dL (6.3-8.2) 09/17/18 18:50 Albumin 3.7 g/dL (3.5-5.0) 09/17/18 18:50 Urine Color JAMAL 09/17/18 20:30 Urine Appearance HAZY 09/17/18 20:30 Urine pH 5.0 (5.0-7.5) 09/17/18 20:30 Ur Specific [place] 1.021 (1.002-1.030) 09/17/18 20:30 Urine Protein 1+ (NEGATIVE) H 09/17/18 20:30 Urine Ketones TRACE (NEGATIVE) H 09/17/18 20:30 Urine Blood NEGATIVE (NEGATIVE) 09/17/18 20:30 Urine Nitrate NEGATIVE (NEGATIVE) 09/17/18 20:30 Urine Bilirubin POSITIVE (NEGATIVE) H 09/17/18 20:30 Urine Urobilinogen 4.0 EU (0.2-1.0) H 09/17/18 20:30 Ur Leukocyte Esterase NEGATIVE (NEGATIVE) 09/17/18 20:30 Urine RBC 1-3 /hpf (0-3) 09/17/18 20:30 Urine WBC 5-10 /hpf (0-3) H 09/17/18 20:30 Ur Epithelial Cells TRACE /lpf (NONE-1+) 09/17/18 20:30 Granular Casts 5-15 /lpf (0-1) 09/17/18 20:30 Urine Mucus 2+ /lpf (NONE-1+) H 09/17/18 20:30 Urine Glucose NEGATIVE (NEGATIVE) 09/17/18 20:30 Visualized and Interpreted Chest x-ray results: Yes Chest X-Ray results: other (bronchitis) Visualized and Interpreted EKG results: Yes EKG additional interpertation: a fib rate in 80s Assessment & Plan Assessment: Cholecystitis (Acute) Severe sepsis (Acute) 87 yo M with PMH of a fib, BPH presenting with sepsis and presumed source GB # sepsis: with fever, tachycardia, tachypnea and presumed source of infection biliary as next. Does have some respiratory sxs as well and respiratory pathogen panel pending as well. HD stable, cultures pending, abx initiated. UA with some WBC so will send culture, cxr without infiltrate though possible bronchitis # cholecystitis/choledocholithiasis: patient presenting with sepsis with really no significant sxs but does have elevated lfts and significant gallstones and GB wall thickening on abd US although appearance more c/w chronic than acute cholecystitis per radiology. General surgery consulted, started on abx with ertapenem. Will repeat LFTs in am. If LFTs trending up or not improving will need GI consultation for consideration of ERCP. Consider CTA/P if diagnosis felt to be unclear per surgery in am (Gonsales to see in am) # elevated LFTs: in cholestatic picture as above, trending # a fib: rate controlled currently, holding AC given possible surgery # HTN: BP currently on low end, holding bp meds # BPH: continue home medications # bronchitis: noted on imaging, patient saturations normal on RA, will start prn nebs # IP status, will need > 48 hours stay for eval/mgmt of above Patient new to my care. Old records reviewed and summarized as above. Further hx obtained from patients son present at bedside. Care plan reviewed with ER doctor and Dr. Rodriguez.
[2018-09-17] MEDS: ERTAPENEM 1 GM in NS 100 ML IV SCH (22:11)
[2018-09-17] MEDS: NS 1,000 ML IV SCH (22:12)
[2018-09-17] MEDS ORDERED: ALBUTEROL 3 ML DEYVIAL IH PRN (23:48)
--- NOTE | 2018-09-18 01:04 | GCON ---
[f rep st] CONSULTATION DATE OF CONSULTATION: 09/17/2018 CHIEF COMPLAINT: Fever, choledocholithiasis. HISTORY OF PRESENT ILLNESS: The patient is an 87-year-old man who walks regularly. He was in his [facility] state of health yesterday. This afternoon, he developed fevers, chills, generalized weakness. H e denies any GI symptoms. He denies any respiratory symptoms. He has a recent diagnosis of atrial f ibrillation and is on Eliquis. When he was in the emergency room, labs were obtained, and ultimately ultrasound was obtained that showed multiple gallstones with thickened gallbladder wall. PAST MEDICAL HISTORY: Significant for atrial fibrillation, hypertension, neuropathy. PAST SURGICAL HISTORY: Includes appendectomy, esophageal repair, nasal surgery. FAMILY HISTORY: His mother had her gallbladder removed. SOCIAL HISTORY: He is independent, and he does not use alcohol. REVIEW OF SYSTEMS: Significant for fatigue, weakness, fevers, chills. He denies nausea, vomiting, c lay-colored stools, dark-colored urine, jaundice, pruritis. PHYSICAL EXAMINATION: VITAL SIGNS: 39.3, 87, 122/69, 96 on 2 L. General: Pleasant, elderly man, a ppears younger than stated age, lying on bed. HEENT: Normocephalic. No gross hearing deficits. Pu pils equal and round. No scleral icterus. Mucous membranes dry. LUNGS: Clear to auscultation bila terally. No increased work of breathing. CARDIAC: Irregular rate. ABDOMEN: Bowel sounds present. Soft. He is nontender to palpation. He has a right lower quadrant incision. EXTREMITIES: Normal nails. SKIN: Warm and dry. PSYCH: Mood and affect normal. RESULTS REVIEWED: I reviewed the results of the ultrasound as well as his laboratory work. IMPRESSION AND PLAN: The patient is an 87-year-old man on Eliquis with likely choledocholithiasis. I recommend antibiotics. May recheck labs tomorrow. May need to consider MRCP. Likely will need la paroscopic cholecystectomy. We discussed that if his health condition worsens that cholecystostomy t ube is also an option. Case discussed with Dr. Turner and his son. /[id number]/MODL
[2018-09-18 05:18] LABS: PLATELET COUNT 145 10^3/uL (150-400)
[2018-09-18] MEDS ORDERED: POTASSIUM CL 20 MEQ TAB PO ONE ×2 (07:10→08:46)
[2018-09-18] MEDS: NS 1,000 ML IV SCH ×2 (07:21→21:30)
--- NOTE | 2018-09-18 08:47 | HOSPPROG ---
Hospitalist Progress Note Assessment/Plan: #Sepsis: E coli bacteremia with biliary source. Negative resp PCR. Urine/blood cultures pending -appreciate Surgical eval. Ertapenem -Plan on open choley Thursday (high-risk for bleeding) #Choledocholithiasis: 2 CBD stones on MRCP. Dr. Gauthier will discuss with Jamir on timing of ERCP #A fib: Dilt. Hold AC with possible surgery #BPH #HTN: holding anti-hypertensives with sepsis #Hypokalemia: replete #Hyperbilirubinemia: trending down #Diet: clears #DVT ppx: SCDS #Disp: inpatient admission for bacteremia, CBD stones. IV abx, planned surgery Subjective: "feeling much better". Denies abd pain Objective: Vital Signs Temp Pulse Resp BP Pulse Ox 37.1 C 60 22 H 119/65 95 09/18/18 07:59 09/18/18 07:59 09/18/18 07:59 09/18/18 07:59 09/18/18 07:59 Microbiology 09/18/18 02:20 Respiratory Panel (PCR) - Final Nasal, Sinus - Anaerobic Tube/Swab No Organism Detected By Pcr Laboratory Results 09/18/18 04:42 09/18/18 04:42 09/17/18 09/18/18 09/19/18 05:59 05:59 05:59 Output Total 305 Balance -305 PT 18.3 SEC (12.0-15.0) H 09/17/18 18:30 INR 1.60 (0.83-1.16) H 09/17/18 18:30 - Time Spent With Patient Time Spent with Patient: greater than 35 minutes Time Spent with Patient: Greater than 35 minutes spent on this patients care, greater than 50% of time spent counseling, educating, and coordinating care regarding the above mentioned plan. - Physical Exam Constitutional: no apparent distress Eyes: PERRL Ears, Nose, Mouth, Throat: moist mucous membranes Cardiovascular: regular rate and rhythym Respiratory: no respiratory distress Gastrointestinal: distension, No soft, non-tender abdomen, No tenderness Skin: warm Musculoskeletal: full muscle strength Neurologic: AAOx3 Psychiatric: interacting appropriately ICD10 Worksheet Patient Problems: Problems Problem Status Onset Cholecystitis Acute Severe sepsis Acute Atrial fibrillation with rapid ventricular response Acute Dehydration Acute Diarrhea Acute Fever Acute Hyponatremia Acute Tachycardia Acute Vomiting Acute Weakness Acute
[2018-09-18] MEDS: DUTASTERIDE 0.5 MG CAP PO SCH (09:45)
[2018-09-18] MEDS: DILTIAZEM 60 MG TAB PO SCH (09:45)
--- NOTE | 2018-09-18 10:29 | PDMN ---
Medical Necessity Medical necessity: Pt meets inpt criteria per MD order and MCG M-160, Sepsis and Other Febrile Illness, without Focal Infection, A-3 days. 87 y/o presenting w/fever of 104 and very weak, tachycardic and tachypneic found to have sepsis w/ presumed source of inf GB, cholecystitis/choledocholithiasis w/elev LFT's and signif gallstones and GB wall thickening. IV ABX's initiated, surg consult ( likely will need saji), urine and bl cx's pending. PMHx includes afib, HTN, neuropathy, comorbid adv age. Est LOS>2MN or ongoing eval/management of above.
[2018-09-18] MEDS ORDERED: GADOBUTROL 10 ML VIAL IVP ONE (11:03)
--- NOTE | 2018-09-18 12:57 | SOAPPROG ---
SOAP Progress Note Assessment/Plan: Assessment: 87-year-old male bacteremic from likely cholecystitis, question choledocholithiasis Agree MRCP today to rule out choledocholithiasis and concern for cholangitis Continue to hold Eliquis, ideally would be off 48 hr prior to cholecystectomy Cholecystectomy this admission, likely Thursday, clear liquids okay until midnight Thursday Plan: 09/18/18 12:56 Subjective: Wants to go home Objective: Vital Signs Temp Pulse Resp BP Pulse Ox 36.6 C 58 L 18 130/68 H 97 09/18/18 12:48 09/18/18 12:48 09/18/18 12:48 09/18/18 12:48 09/18/18 12:48 Microbiology 09/18/18 02:20 Respiratory Panel (PCR) - Final Nasal, Sinus - Anaerobic Tube/Swab No Organism Detected By Pcr Laboratory Results 09/18/18 04:42 09/18/18 04:42 09/17/18 09/18/18 09/19/18 05:59 05:59 05:59 Output Total 305 Balance -305 PT 18.3 SEC (12.0-15.0) H 09/17/18 18:30 INR 1.60 (0.83-1.16) H 09/17/18 18:30 ICD10 Worksheet Patient Problems: Problems Problem Status Onset Cholecystitis Acute Severe sepsis Acute Atrial fibrillation with rapid ventricular response Acute Dehydration Acute Diarrhea Acute Fever Acute Hyponatremia Acute Tachycardia Acute Vomiting Acute Weakness Acute
--- NOTE | 2018-09-18 15:23 | ASMTCMCOM ---
CM Note CM Note Notes: Pt has been admitted with weakness and fever. An MRCP and lap cholecystectomy are pending. He has had [facility] in the past. Pt lives with his in [place]. CM will follow for any d/c needs. D/C needs: TBD Date Signed: 09/18/2018 03:22 PM Electronically Signed By:ELLEN Gallegos
[2018-09-18] MEDS: ERTAPENEM 1 GM in NS 100 ML IV SCH (19:51)
[2018-09-18] MEDS: BIMATOPROST 0.01% 2.5 ML OPHT.BTL EACHEYE SCH (21:51)
[2018-09-19] MEDS: DUTASTERIDE 0.5 MG CAP PO SCH (08:46)
[2018-09-19] MEDS: DILTIAZEM 60 MG TAB PO SCH (08:46)
--- NOTE | 2018-09-19 09:43 | SOAPPROG ---
SOAP Progress Note Assessment/Plan: Assessment: 87-year-old male bacteremic from cholecystitis, choledocholithiasis - VSS, - doing well on IV antibiotics - MR: multiple common duct stones - needs ERCP - also needs saji, after ERCP. - patient has little insight into how sick he is and risks/benefits of procedures he needs. - Given the findings on the US and MR, I anticipate his cholecystectomy to be technically difficult with a good chance of conversion to open and increased risk of complication Plan: 09/18/18 12:56 09/19/18 09:40 Subjective: no pain, wants to eat, wants to go home Objective: Vital Signs Temp Pulse Resp BP Pulse Ox 36.3 C 64 16 156/87 H 95 09/19/18 07:50 09/19/18 07:50 09/19/18 07:50 09/19/18 07:50 09/19/18 07:50 Microbiology 09/18/18 02:20 Respiratory Panel (PCR) - Final Nasal, Sinus - Anaerobic Tube/Swab No Organism Detected By Pcr Laboratory Results 09/18/18 04:42 09/19/18 04:43 09/18/18 09/19/18 09/20/18 05:59 05:59 05:59 Intake Total 500 Output Total 305 Balance -305 500 PT 18.3 SEC (12.0-15.0) H 09/17/18 18:30 INR 1.60 (0.83-1.16) H 09/17/18 18:30 ICD10 Worksheet Patient Problems: Problems Problem Status Onset Cholecystitis Acute Severe sepsis Acute Atrial fibrillation with rapid ventricular response Acute Dehydration Acute Diarrhea Acute Fever Acute Hyponatremia Acute Tachycardia Acute Vomiting Acute Weakness Acute
[2018-09-19] MEDS ORDERED: IOTHALAMATE MEG (CONRAY) 50 ML VIAL IV ONE (12:26)
[2018-09-19] MEDS ORDERED: INDOMETHACIN 50 MG SUPP PR ONE ×2 (12:26→12:36)
[2018-09-19] MEDS ORDERED: PROMETHAZINE HCL 25 MG/ML INJ IVP PRN (12:27)
[2018-09-19] MEDS ORDERED: fentaNYL 100 MCG/2 ML INJ IVP PRN (12:27)
[2018-09-19] MEDS ORDERED: NALOXONE HCL 0.4 MG/ML INJ IVP PRN (12:27)
[2018-09-19] MEDS ORDERED: METOCLOPRAMIDE 10 MG/2 ML VIAL IVP PRN (12:27)
[2018-09-19] MEDS ORDERED: ONDANSETRON 4 MG/2 ML VIAL IVP PRN (12:27)
[2018-09-19] MEDS ORDERED: LR 500 ML IV PRN (12:27)
[2018-09-19] MEDS ORDERED: MEPERIDINE 25 MG/0.5 ML AMP IVP PRN (12:27)
[2018-09-19] MEDS ORDERED: NS 500 ML IV PRN (12:27)
[2018-09-19] MEDS ORDERED: PHENYLEPHRINE HCL 100 MCG/ML SYR IVP PRN (12:27)
--- NOTE | 2018-09-19 12:27 | POSTANESTH ---
Post Anesthetic Evaluation Cardiovascular Status: Normal, Stable Respiratory Status: Normal, Stable Level of Consciousness/Mental Status: Can Participate in Eval Pain Control: Adequate, Prn Tx Ordered Nausea/Vomiting Control: Adequate, Prn Tx Ordered Complications Possibly Related to Anesthesia: None Noted
--- NOTE | 2018-09-19 12:27 | PDANEPAE ---
ANE Past Medical History - Cardiovascular History Hx Hypertension: No Hx Arrhythmias: No - Pulmonary History Hx Recent Upper Respiratory Infection: Yes Hx Oxygen in Use at Home: No Hx Sleep Apnea: No Sleep Apnea Screening Result - Last Documented: Positive - Endocrine History Hx Diabetes: No - Renal History Hx Renal Disorders: No - Liver History Hx Hepatic Disorders: Yes Hepatic History Comment: Elevated LFTs with Gall stones - Other Health History Other Health History: Sepsis. Source not confirmed. - Chronic Pain History Chronic Pain: No ANE Review of Systems Review of Systems: ANE Patient History - Allergies Allergies/Adverse Reactions: No Known Allergies Allergy (Verified 01/05/18 08:10) - Home Medications Home Medications: Dutasteride [Avodart 0.5 MG (*)] 0.5 mg PO DAILY 11/07/17 [Last Taken 09/17/18] C/E/Zn/Cu/OM3/DHA/EPA/LUT/ZEAX [Preservision Areds 2 Softgel] 1 each PO BID [Last Taken 09/17/18] Bimatoprost 0.01% [Lumigan 0.01% (*)] 1 drops EACHEYE HS 09/17/18 [Last Taken Unknown] SIMVASTATIN 10 mg PO HS 09/17/18 [Last Taken Unknown] - NPO status NPO Since - Liquids (Date): 09/19/18 NPO Since - Liquids (Time): 08:00 NPO Since - Solids (Date): 09/19/18 NPO Since - Solids (Time): 08:00 - Smoking Hx Smoking Status: Never smoked - Alcohol Use Alcohol Use: None ANE Labs/Vital Signs - Labs Result Diagrams: 09/18/18 04:42 09/19/18 04:43 - Vital Signs Blood Pressure: 159/74 Heart Rate: 65 Respiratory Rate: 16 O2 Sat (%): 96 Height: 172.7 cm Weight: 65.7 kg ANE Physical Exam - Airway Neck exam: FROM Mallampati Score: Class 2 Mouth exam: poor dentition - Pulmonary Pulmonary: no respiratory distress, no rales or rhonchi, clear to auscultation - Cardiovascular Cardiovascular: regular rate and rhythym, no murmur, rub, or gallop - ASA Status ASA Status: III, E ANE Anesthesia Plan Anesthesia Plan: general endotracheal anesthesia
--- NOTE | 2018-09-19 12:39 | SOAPPROG ---
SOAP Progress Note Assessment/Plan: Assessment:Plan: see full dictated consult to follow 87 y/o male with e coli bacteremia from GB and he has cbd stones on MRCP = two small stones and lots of stones in his GB ERCp to clear duct prior to cholecystectomy last dose of Eliquis was night pt and son consented Romero Gauthier MD [phone] 09/19/18 12:36 Objective: Vital Signs Temp Pulse Resp BP Pulse Ox 36.3 C 65 16 159/74 H 96 09/19/18 11:32 09/19/18 12:27 09/19/18 12:27 09/19/18 12:27 09/19/18 12:27 Microbiology 09/18/18 02:20 Respiratory Panel (PCR) - Final Nasal, Sinus - Anaerobic Tube/Swab No Organism Detected By Pcr Laboratory Results 09/18/18 04:42 09/19/18 04:43 09/18/18 09/19/18 09/20/18 05:59 05:59 05:59 Intake Total 500 Output Total 305 Balance -305 500 PT 18.3 SEC (12.0-15.0) H 09/17/18 18:30 INR 1.60 (0.83-1.16) H 09/17/18 18:30 ICD10 Worksheet Patient Problems: Problems Problem Status Onset Cholecystitis Acute Severe sepsis Acute Atrial fibrillation with rapid ventricular response Acute Dehydration Acute Diarrhea Acute Fever Acute Hyponatremia Acute Tachycardia Acute Vomiting Acute Weakness Acute
[2018-09-19] MEDS ORDERED: ONDANSETRON 4 MG/2 ML VIAL ONE ×2 (13:01→13:55)
[2018-09-19] MEDS ORDERED: SUGAMMADEX SODIUM 200 MG/2 ML VIAL IVP ONE (13:01)
[2018-09-19] MEDS ORDERED: DEXAMETHASONE 4 MG/ML VIAL ONE (13:01)
[2018-09-19] MEDS ORDERED: ROCURONIUM 50 MG/5 ML VIAL ONE (13:01)
--- NOTE | 2018-09-19 13:35 | GIREPORT ---
[facility] Surgical Services - Endoscopy Department Patient Name: Jose Daniel Tamez Procedure Date: 09/19/2018 12:26 PM Patient Type: Inpatient Attending MD/ ER Physician: Romero Gauthier MD Procedure: ERCP Indications: Common bile duct stone(s), Elevated liver enzymes Providers: Romero Gauthier MD Referring MD: Frances Luther MD, Jeremias Bowie MD Medicines: General Anesthesia, Indomethacin 100 mg MA Complications: No immediate complications. Estimated blood loss: Minimal. Description of Procedure: After obtaining informed consent, the scope was passed under direct vis ion. Throughout the procedure, the patient's blood pressure, pulse, and oxyg en saturations were monitored continuously. The Duodenoscope was introduce d through the mouth, and advanced to the duodenum and used to inject cont rast into the bile duct. The ERCP was accomplished without difficulty. The patient tolerated the procedure well. Findings: The clinical trials specialist film was normal. The esophagus was successfully intubated und er direct vision. The scope was advanced to a normal major papilla in the descending duodenum without detailed examination of the pharynx, larynx and associated structures, and upper GI tract. The upper GI tract was gross ly normal. The bile duct was deeply cannulated with the short-nosed tracti on sphincterotome. Contrast was injected. I personally interpreted the mary e duct images. Ductal flow of contrast was adequate. Image quality was adequate. Contrast extended to the bifurcation. Contrast extended to th e hepatic ducts. The lower third of the main bile duct contained two ston es, the largest of which was 4 mm in diameter. The common hepatic duct cont ained a single localized stenosis. An 11 mm biliary sphincterotomy was made w ith a braided traction (standard) sphincterotome using ERBE electrocautery. T here was no post-sphincterotomy bleeding. Choledocholithiasis was found in a mildly dilated duct. The biliary tree was swept with a 12 mm balloon starting at the bifurcation. All stones were removed. Cells for cytolog y were obtained by brushing in the upper third of the main bile duct and the hepatic duct bifurcation. Estimated Blood Loss: Estimated blood loss was minimal. Post Op Diagnosis: - A biliary sphincterotomy was performed. - Choledocholithiasis was found. Complete removal was accomplished by biliary sphincterotomy and balloon extraction. - The biliary tree was swept. - A single localized biliary stricture was found in the common hepatic duct. The stricture was benign appearing. (not seen well on MRCP) - Cells for cytology obtained in the upper third of the main bile duct, hepatic duct and at the hepatic duct bifurcation. Recommendation: - Return patient to [facility] for ongoing care. - Clear liquid diet. NPO post midnight for Lap Bonny as per surgery - Await cytology results. - Thank you for allowing me to help in your patient's care. Do not hesi dawn to call with any questions. - Photo number 4 is his esophagus which was normal with side viewing sc ope Attending Participation: I personally performed the entire procedure. Abrahan Merrill M.D Romero Gauthier MD 09/19/2018 1:34:55 PM This report has been signed electronicallyMatthew MD Abrahan Number of Addenda: 0 Note Initiated On: 09/19/2018 12:26 PM [email or web address]
--- NOTE | 2018-09-19 14:56 | HOSPPROG ---
Hospitalist Progress Note Assessment/Plan: #Sepsis: E coli bacteremia with biliary source. Negative resp PCR. Urine/blood cultures pending -appreciate Surgical eval. Ertapenem -Plan on open choley Thursday (high-risk for bleeding) #Choledocholithiasis: ERCP done today with biliary sphincterotomy #A fib: Dilt. Hold AC with possible surgery #BPH #HTN: Dilt #Hypokalemia: replete #Hyperbilirubinemia: trending down #Diet: clears #DVT ppx: SCDS #Disp: inpatient admission for bacteremia, CBD stones. IV abx, planned surgery Subjective: no abd pain Objective: Vital Signs Temp Pulse Resp BP Pulse Ox 36.3 C 60 16 148/90 H 94 09/19/18 14:21 09/19/18 14:21 09/19/18 14:21 09/19/18 14:21 09/19/18 14:21 Laboratory Results 09/18/18 04:42 09/19/18 04:43 09/18/18 09/19/18 09/20/18 05:59 05:59 05:59 Intake Total 500 800 Output Total 305 0 Balance -305 500 800 PT 18.3 SEC (12.0-15.0) H 09/17/18 18:30 INR 1.60 (0.83-1.16) H 09/17/18 18:30 - Time Spent With Patient Time Spent with Patient: greater than 35 minutes Time Spent with Patient: Greater than 35 minutes spent on this patients care, greater than 50% of time spent counseling, educating, and coordinating care regarding the above mentioned plan. - Physical Exam Constitutional: no apparent distress Eyes: PERRL Ears, Nose, Mouth, Throat: moist mucous membranes Cardiovascular: regular rate and rhythym Respiratory: no respiratory distress Gastrointestinal: normoactive bowel sounds, soft, non-tender abdomen, tenderness Genitourinary: no bladder fullness Skin: warm Musculoskeletal: full muscle strength Neurologic: CN II-XII Intact Psychiatric: interacting appropriately ICD10 Worksheet Patient Problems: Problems Problem Status Onset Cholecystitis Acute Severe sepsis Acute Atrial fibrillation with rapid ventricular response Acute Dehydration Acute Diarrhea Acute Fever Acute Hyponatremia Acute Tachycardia Acute Vomiting Acute Weakness Acute
--- NOTE | 2018-09-19 16:10 | ASMTCMCOM ---
CM Note CM Note Notes: CM met with pt. Pt reports that he would like to discharge to [facility] Homecare. [facility] was sent a referral. CM to follow. Plan: [facility] PT Date Signed: 09/19/2018 04:09 PM Electronically Signed By:Eva Phoenix
[2018-09-19] MEDS: ERTAPENEM 1 GM in NS 100 ML IV SCH (19:57)
[2018-09-19] MEDS: BIMATOPROST 0.01% 2.5 ML OPHT.BTL EACHEYE SCH (20:59)
--- NOTE | 2018-09-19 21:22 | GCON ---
[f rep st] CONSULTATION DATE OF CONSULTATION: 09/19/2018 REFERRING PHYSICIAN: Dr. Bowie ADDITIONAL REFERRING PHYSICIAN: Dr. Ewing. INDICATION FOR CONSULTATION: Common bile duct stones, abnormal imaging, elevated liver enzymes, bact eremia, sepsis with E coli. HISTORY OF PRESENT ILLNESS: I have been asked by Dr. Bowie and Dr. Ewing to see the patient in consultation for a chief complaint of choledocholithiasis with elevated liver enzymes and mildly dil ated biliary system on imaging. He is a very pleasant 87-year-old male with a past medical history s ignificant for atrial fibrillation and hypertension, who was in his usual state of health until he ac utely developed fevers and weakness on the day of admission. He presented to the emergency room with a fever of 104, was tachycardic with elevated liver enzymes. Imaging studies performed showed signi ficant cholelithiasis and probable cholecystitis. He responded well to IV antibiotics and is much mo re stable. An MRCP obtained yesterday revealed 2 small common bile duct stones and mildly dilated co mmon bile duct and multiple gallstones in his gallbladder. His liver enzymes have improved, but have not resolved since admission. His white count actually went up, and he is afebrile. Because of his choledocholithiasis and abnormal liver enzymes, I am called to help and evaluate and treat in that re eliza. PAST MEDICAL HISTORY: History of atrial fibrillation, BPH, hypertension, glaucoma, neuropathy. PAST SURGICAL HISTORY: Includes appendectomy, operation to his nose. He also reportedly had a hiata l hernia repair approximately 11 years ago. MEDICATIONS: At home included Avodart, Lumigan, simvastatin, PreserVision drops. In the hospital, h is medications include Tylenol p.r.n., [place] p.r.n., albuterol p.r.n., Lumigan 1 drop each eye q.h.s. , diltiazem 60 mg daily, Avodart 0.5 mg daily, ertapenem 1 g IV daily, Dilaudid p.r.n., Zofran p.r.n. , oxycodone p.r.n., Phenergan p.r.n., and Eliquis (last dose taken was evening). ALLERGIES: No known drug allergies. SOCIAL HISTORY: Does not smoke. He quit alcohol about 10 years ago. FAMILY HISTORY: Gallstones in his mother. No family history of colon cancer or colon polyps to his knowledge. REVIEW OF SYSTEMS: A complete review of systems was performed and negative other than noted in the H PI. Currently, he is feeling quite well with no abdominal pain. No chest pain. No fevers, chills, sweats. No cough. No shortness of breath. PHYSICAL EXAM: GENERAL: Well-developed, well-nourished elderly male sitting in his chair in no acut e distress. VITAL SIGNS: Blood pressure is 140/75, pulse is 60, respirations are 16. He is 94% on 2 L. Temperature is 36.5. On admission, his temperature was 39.4. EYES: Icteric. CATALINO. EOMI. M OUTH: No lesions. Moist membranes. NECK: Supple. Full range of motion. No JVD. BACK: No spine tenderness. No CVA tenderness. LUNGS: Clear. CARDIAC: S1, S2. Regular rate and rhythm. No mur murs, rubs or gallops appreciated. ABDOMEN: Bowel sounds are normal in pitch and frequency. Abdome n is soft and nontender. No hepatosplenomegaly. EXTREMITIES: No cyanosis, clubbing. Minimal edema . NEUROLOGIC: Cranial nerves intact. Nonfocal. Alert and oriented x3. SKIN: No stigmata of adva nced liver disease. There are no rashes. LABORATORY DATA: From today, the , sodium 137, potassium 3.8, chloride 115, bicarb 16, BUN 14, c reatinine 0.7, calcium 7.9, bilirubin 1.5, AST 71, ALT 139, alkaline phosphatase 129. On admission, his bilirubin was 5.2. His AST was 168, ALT 248, and alkaline phosphatase 168. Pro time when he cam e in was 18.3, INR 1.60. On 09/17, WBC 3.96, hemoglobin 12.8, hematocrit 37.8, platelet count 164, 8 9% neutrophils. We do not have that from 09/19. The correlation was from 09/17 as well. IMAGING STUDIES: Abdominal ultrasound performed September 17, 2018: Cholelithiasis with thickened gallb ladder wall with lack of hyperemia and pericholecystic fluid. This may be chronic as opposed to acut e cholecystitis, hepatomegaly with probable fatty infiltration. Chest x-ray obtained from September 17, 2018, revealed stable mild cardiomegaly, mild interstitial prominence bilaterally which could represe nt underlying interstitial lung disease or pulmonary edema, probably underlying bronchitis. An abdom inal MRI/MRCP obtained September 18, 2018, revealed suspect 2 small obstructing stones in the common bile duct measuring about 4 mm, cholelithiasis with mild gallbladder wall thickening. No free fluid, mas s, or lymphadenopathy. No hepatic steatosis. HISTORICAL LAB DATA: On January 04, 2018, his LFTs were bilirubin 1.2 with unconjugated bilirubin 1.2, AST 33, ALT 27, alkaline phosphatase 71. LFTs are normal and bilirubin is consistent with Guillain- Central. ASSESSMENT: 1. Choledocholithiasis. 2. Elevated liver enzymes. 3. Escherichia coli sepsis bacteremia. 4. History of atrial fibrillation, now in normal sinus rhythm. 5. Long-term use of Eliquis, last dose evening. RECOMMENDATIONS: 1. Proceed with ERCP for presumed choledocholithiasis given the abnormal MRCP and continued elevated liver enzymes. 2. Continue off Eliquis for now. 3. Further recommendations to follow results of ERCP. Given the patient's age, history of atrial fibrillation and hypertension, this will be a higher risk procedure than normal. The patient will be monitored continuously by Anesthesia, [facility]. Thank you for allowing me to participate in your patient's healthcare. Do not hesitate to call me wi th any questions. /[id number]/MODL
[2018-09-20] MEDS: NS 1,000 ML IV SCH (00:02)
--- NOTE | 2018-09-20 05:17 | PDHPUP ---
History & Physical Update H&P update statement: This history and physical update is based on an assessment of the patient which was completed after admission or registration (within 24 hours), but prior to the surgery/procedure. H&P update: H&P reviewed & patient examined, no change in patient's condition since H&P completed
[2018-09-20] MEDS ORDERED: LR 1,000 ML IV ONE (06:20)
--- NOTE | 2018-09-20 07:05 | PDANEPAE ---
ANE History of Present Illness cholelithiasis s/f lap saji ANE Past Medical History - Cardiovascular History Hx Hypertension: No Hx Arrhythmias: Yes Hx Coronary Artery / Peripheral Vascular Disease: Yes - Pulmonary History Hx Recent Upper Respiratory Infection: Yes Hx Oxygen in Use at Home: No Hx Sleep Apnea: No Sleep Apnea Screening Result - Last Documented: Positive - Endocrine History Hx Diabetes: No - Renal History Hx Renal Disorders: No - Liver History Hx Hepatic Disorders: Yes Hepatic History Comment: Elevated LFTs with Gall stones - Other Health History Other Health History: Sepsis. Source not confirmed. - Chronic Pain History Chronic Pain: No ANE Review of Systems Review of Systems: - Exercise capacity Exercise capacity: <4 METS (recent EGD without problem) ANE Patient History - Allergies Allergies/Adverse Reactions: No Known Allergies Allergy (Verified 01/05/18 08:10) - Home Medications Home medications: home medication list seen and reviewed Home Medications: Dutasteride [Avodart 0.5 MG (*)] 0.5 mg PO DAILY 11/07/17 [Last Taken 09/17/18] C/E/Zn/Cu/OM3/DHA/EPA/LUT/ZEAX [Preservision Areds 2 Softgel] 1 each PO BID [Last Taken 09/17/18] Bimatoprost 0.01% [Lumigan 0.01% (*)] 1 drops EACHEYE HS 09/17/18 [Last Taken Unknown] SIMVASTATIN 10 mg PO HS 09/17/18 [Last Taken Unknown] - NPO status NPO Status: no food or drink >8 hours NPO Since - Liquids (Date): 09/20/18 NPO Since - Liquids (Time): 00:00 NPO Since - Solids (Date): 09/20/18 NPO Since - Solids (Time): 00:00 - Anes Hx Anes Hx: no prior problems - Smoking Hx Smoking Status: Never smoked - Alcohol Use Alcohol Use: None - Family Anes Hx Family Anes Hx: none ANE Labs/Vital Signs - Labs Result Diagrams: 09/18/18 04:42 09/19/18 04:43 - Vital Signs Blood Pressure: 135/73 Heart Rate: 54 Respiratory Rate: 18 O2 Sat (%): 94 Height: 172.7 cm Weight: 65.7 kg ANE Physical Exam - Airway Neck exam: decreased ROM Mallampati Score: Class 2 Mouth exam: poor dentition - Pulmonary Pulmonary: no respiratory distress - Cardiovascular Cardiovascular: regular rate and rhythym - ASA Status ASA Status: III ANE Anesthesia Plan Anesthesia Plan: general endotracheal anesthesia
[2018-09-20] MEDS ORDERED: BUPIVACAINE/EPI 0.25% 30 ML SDV ONE (07:07)
[2018-09-20] MEDS ORDERED: ONDANSETRON 4 MG/2 ML VIAL ONE (07:16)
[2018-09-20] MEDS ORDERED: DEXAMETHASONE 4 MG/ML VIAL ONE ×2 (07:16)
[2018-09-20] MEDS ORDERED: ROCURONIUM 50 MG/5 ML VIAL ONE (07:16)
[2018-09-20] MEDS ORDERED: fentaNYL 100 MCG/2 ML INJ ONE (07:16)
[2018-09-20] MEDS ORDERED: PROPOFOL/EMULSION 500 MG/50 ML BOTTLE IV ONE (07:16)
[2018-09-20] MEDS ORDERED: LIDOCAINE 2% 100 MG/5 ML SYR ONE (07:17)
[2018-09-20] MEDS ORDERED: LIDOCAINE HCL 160 MG/4 ML LTA KIT TP ONE (07:17)
[2018-09-20] MEDS ORDERED: LIDOCAINE 2% JELLY 6 ML TOPICAL SYR ONE (07:32)
[2018-09-20] MEDS ORDERED: ePHEDrine SULFATE 25 MG/5 ML SYR ONE (07:37)
[2018-09-20] MEDS ORDERED: LABETALOL HCL 5 MG/ML 20 ML MDV IVP PRN (08:08)
[2018-09-20] MEDS ORDERED: PROMETHAZINE HCL 25 MG/ML INJ IVP PRN (08:08)
[2018-09-20] MEDS ORDERED: ONDANSETRON 4 MG/2 ML VIAL IVP PRN (08:08)
[2018-09-20] MEDS ORDERED: LR 500 ML IV PRN (08:08)
[2018-09-20] MEDS ORDERED: NALOXONE HCL 0.4 MG/ML INJ IVP PRN (08:08)
[2018-09-20] MEDS ORDERED: ALBUTEROL 3 ML DEYVIAL IH PRN (08:08)
[2018-09-20] MEDS ORDERED: MEPERIDINE 25 MG/0.5 ML AMP IVP PRN (08:08)
[2018-09-20] MEDS ORDERED: fentaNYL 100 MCG/2 ML INJ IVP PRN (08:08)
[2018-09-20] MEDS ORDERED: PHENYLEPHRINE HCL 100 MCG/ML SYR IVP PRN (08:08)
[2018-09-20] MEDS ORDERED: DEXAMETHASONE 4 MG/ML VIAL IVP PRN (08:08)
[2018-09-20] MEDS ORDERED: HYDROmorphONE/DILAUDID 1 MG/ML INJ IVP PRN (08:08)
[2018-09-20] MEDS ORDERED: oxyCODONE IR 5 MG TAB PO PRN (08:08)
[2018-09-20] MEDS ORDERED: METOCLOPRAMIDE 10 MG/2 ML VIAL IVP PRN (08:08)
[2018-09-20] MEDS ORDERED: SUGAMMADEX SODIUM 200 MG/2 ML VIAL IVP ONE (08:18)
--- NOTE | 2018-09-20 08:27 | POSTOPPROG ---
Post Op Note Date of Operation: 09/20/18 Surgeon: Jeremias Bowie Wash Oil Pump Operator Helper: Tj Ibanez MD Anesthesiologist: Joe Anesthesia: GET(General Endotracheal) Pre-op Diagnosis: cholecystitis, choledocholithiasis Post-op Diagnosis: same Procedure: laparoscopic cholecytectomy Findings: dense adhesions, critical view Inf/Abcess present in the surg proc area at time of surgery?: No EBL: Minimal Total fluids administered: 500cc NS washout Specimen(s): GB
--- NOTE | 2018-09-20 11:08 | SOAPPROG ---
SOAP Progress Note Assessment/Plan: Assessment:Plan: see full dictated consult to follow 87 y/o male with e coli bacteremia from GB and he has cbd stones on MRCP = two small stones and lots of stones in his GB ERCp to clear duct prior to cholecystectomy last dose of Eliquis was night pt and son consented Romero Gauthier MD [phone] 09/19/18 12:36 09/20/18 11:05 1) CBD stone - cleared with ERCp, follow labs 2) GB - s/p lap saji 3) abdo pain - just s/p lap saji 4) ID - on abx for ecoli bacteremia will sign off thank you Subjective: CC- CBD stone cholecystitis s/p ERCp and lap saji pt in bed, awake and alert with abdo pain as just s/p surgery Objective: Vital Signs Temp Pulse Resp BP Pulse Ox 36.3 C 57 L 16 126/68 H 92 09/20/18 10:45 09/20/18 10:45 09/20/18 10:45 09/20/18 10:45 09/20/18 10:45 Laboratory Results 09/18/18 04:42 09/19/18 04:43 09/19/18 09/20/18 09/21/18 05:59 05:59 05:59 Intake Total 500 800 475 Output Total 0 25 Balance 500 800 450 PT 18.3 SEC (12.0-15.0) H 09/17/18 18:30 INR 1.60 (0.83-1.16) H 09/17/18 18:30 Alert CTA anteriorly S1S2 +BS, decreased, soft tender ICD10 Worksheet Patient Problems: Problems Problem Status Onset Cholecystitis Acute Severe sepsis Acute Atrial fibrillation with rapid ventricular response Acute Dehydration Acute Diarrhea Acute Fever Acute Hyponatremia Acute Tachycardia Acute Vomiting Acute Weakness Acute
--- NOTE | 2018-09-20 12:39 | POSTANESTH ---
Post Anesthetic Evaluation Cardiovascular Status: Normal, Stable Respiratory Status: Normal, Stable, Tx Decrease in SpO2 Level of Consciousness/Mental Status: Can Participate in Eval, Alert and Oriented Pain Control: Adequate, Prn Tx Ordered Nausea/Vomiting Control: Adequate, Prn Tx Ordered Complications Possibly Related to Anesthesia: None Noted
--- NOTE | 2018-09-20 13:17 | ASMTCMCOM ---
CM Note CM Note Notes: Spoke with patient's son Romulo who is in agreement with PT recommendation for home health care. Romulo states patient is wanting to be independent but he needs help. His personal hygiene is deteriorating and he is not able to keep up with a lot of daily activities, per son Romulo. Romulo states they already have [facility] working with his mother and he would like them to also work with his father. A referral was made to [employer] for the patient. Romulo plans to hire an 8 hour a day caregiver to help his father with personal activities. He requests a social work consult to help his father be more accepting of support and help. CM/social service director will follow up with the patient per Romulo's request. D/C plan is [facility] and an 8hour mainframe systems administrator arranged by patient's son Romulo. CM will follow Date Signed: 09/20/2018 12:59 PM Electronically Signed By:Fide York LCSW
[2018-09-20] MEDS: DILTIAZEM 60 MG TAB PO SCH (14:15)
[2018-09-20] MEDS: DUTASTERIDE 0.5 MG CAP PO SCH (14:15)
--- NOTE | 2018-09-20 14:59 | GOP ---
[f rep st] OPERATIVE REPORT DATE OF OPERATION: 09/20/2018 SURGEON: Jeremias Bowie MD ELECTRIC VEHICLE ELECTRICIAN: Peng Ibanez MD ANESTHESIA: General endotracheal. ANESTHESIOLOGIST: Dr. Carlos Diaz. PREOPERATIVE DIAGNOSIS: Cholecystitis and choledocholithiasis. POSTOPERATIVE DIAGNOSIS: Cholecystitis and choledocholithiasis. PROCEDURE PERFORMED: Laparoscopic cholecystectomy. FINDINGS: Some omental adhesions to the gallbladder wall. Critical view was obtained. No other sig nificant findings identified. SPECIMENS: Gallbladder. ESTIMATED BLOOD LOSS: 10 cc. DESCRIPTION OF PROCEDURE: The patient was greeted in the preoperative suite, and once again, risks, benefits, and alternatives were discussed. Consent was signed. He was then brought back to the oper ative suite, placed on the OR table in supine position. After all anesthesia machines, including SCD s were on and functioning, a World Health [employer] time-out was performed. After successful princess ction of general anesthesia, the patient's abdomen was prepped and draped in typical sterile fashion. I commenced the procedure by making an infraumbilical cutdown through which the Veress needle was pas sed. I achieved pneumoperitoneum to 15 mmHg, which was well tolerated by the patient. I then insert ed using a Visiport technique, a 12 mm trocar through this site. Once successfully in the abdomen, I placed 3 additional 5 mm trocars, 1 subxiphoid, 2 in the right upper quadrant, all under direct visu alization. I successfully retracted the gallbladder over the edge of the liver and dissected out the infundibulu m after taking down some omental adhesions bluntly. Dissection at the infundibulum identified 2 and only 2 structures leading toward the gallbladder. I successfully clipped 1st the cystic duct, follow ed by the artery and divided them. I then took the gallbladder off the liver bed using electrocauter y. It was placed in an EndoCatch bag and removed. Hemostasis was achieved in the liver bed with brent ctrocautery and Leo and was noted to be good. I irrigated the right upper quadrant. No other sig nificant findings were identified. I infiltrated all port sites with local anesthesia. I removed them, evacuated my pneumoperitoneum. My infraumbilical site was closed with a 0 Vicryl stitch noting excellent fascial reapproximation. S kin was closed with Monocryl. Dermabond was placed. The patient was then extubated in the operative suite and taken to the PACU in satisfactory condition. DRAINS: None. COUNTS: All counts were as correct x2. . /[id number]/MODL
--- NOTE | 2018-09-20 15:28 | HOSPPROG ---
Hospitalist Progress Note Assessment/Plan: #Sepsis: E coli bacteremia with cholecystitis. resolved #Choledocholithiasis/cholecystitis: s/p ERCP done today with biliary sphincterotomy and lap choley #E coli bacteremia: transition to Augmentin #A fib: Dilt. Restart Eliquis tomorrow #BPH #HTN: Dilt #Hypokalemia: replete #Hyperbilirubinemia: trending down #Deconditioning: son to hire 8-hr private care at home. CM to #Diet: clears #DVT ppx: SCDS #Disp: inpatient admission for bacteremia, CBD stones. IV abx, planned surgery Subjective: s/p choley this morn without issue Objective: Vital Signs Temp Pulse Resp BP Pulse Ox 36.2 C 70 16 108/61 94 09/20/18 15:24 09/20/18 15:24 09/20/18 15:24 09/20/18 15:24 09/20/18 15:24 Microbiology 09/18/18 02:15 Urine Culture - Final Urine,Clean Catch Laboratory Results 09/18/18 04:42 09/19/18 04:43 09/19/18 09/20/18 09/21/18 05:59 05:59 05:59 Intake Total 500 800 475 Output Total 0 25 Balance 500 800 450 PT 18.3 SEC (12.0-15.0) H 09/17/18 18:30 INR 1.60 (0.83-1.16) H 09/17/18 18:30 - Time Spent With Patient Time Spent with Patient: greater than 35 minutes Time Spent with Patient: Greater than 35 minutes spent on this patients care, greater than 50% of time spent counseling, educating, and coordinating care regarding the above mentioned plan. - Physical Exam Constitutional: no apparent distress Eyes: PERRL Ears, Nose, Mouth, Throat: moist mucous membranes Cardiovascular: regular rate and rhythym Respiratory: no respiratory distress Gastrointestinal: normoactive bowel sounds, other (lap choley incisions, CDI) Genitourinary: no bladder fullness Skin: warm Musculoskeletal: full muscle strength Neurologic: CN II-XII Intact Psychiatric: poor insight ICD10 Worksheet Patient Problems: Problems Problem Status Onset Fever Acute Weakness Acute Dehydration Acute Tachycardia Acute Diarrhea Acute Atrial fibrillation with rapid ventricular response Acute Vomiting Acute Hyponatremia Acute Severe sepsis Acute Cholecystitis Acute
[2018-09-20] MEDS: AMOXICILLIN/CLAVULANATE POT 875/125 MG TAB PO SCH (20:54)
[2018-09-20] MEDS: BIMATOPROST 0.01% 2.5 ML OPHT.BTL EACHEYE SCH (20:57)
[2018-09-21 07:55] VITALS: BP 125/72
[2018-09-21] MEDS ORDERED: APIXABAN 5 MG TAB PO SCH (09:00)
--- NOTE | 2018-09-21 09:25 | SOAPPROG ---
SOAP Progress Note Assessment/Plan: Assessment: 87-year-old male bacteremic from cholecystitis, choledocholithiasis - VSS, - pain is well controlled - he is tolerating a regular diet without issue - abdomen looks great - ok to restart Eliquis today - DC today, FU with me in 2 weeks Plan: 09/18/18 12:56 09/19/18 09:40 09/21/18 09:24 Subjective: feels well, wants to go home Objective: Vital Signs Temp Pulse Resp BP Pulse Ox 36.6 C 63 16 125/72 H 92 09/21/18 07:52 09/21/18 07:52 09/21/18 07:52 09/21/18 07:52 09/21/18 07:52 Microbiology 09/18/18 02:15 Urine Culture - Final Urine,Clean Catch Laboratory Results 09/18/18 04:42 09/19/18 04:43 09/20/18 09/21/18 09/22/18 05:59 05:59 05:59 Intake Total 800 1325 Output Total 0 225 Balance 800 1100 PT 18.3 SEC (12.0-15.0) H 09/17/18 18:30 INR 1.60 (0.83-1.16) H 09/17/18 18:30 ICD10 Worksheet Patient Problems: Problems Problem Status Onset Cholecystitis Acute Severe sepsis Acute Atrial fibrillation with rapid ventricular response Acute Dehydration Acute Diarrhea Acute Fever Acute Hyponatremia Acute Tachycardia Acute Vomiting Acute Weakness Acute
[2018-09-21] MEDS: AMOXICILLIN/CLAVULANATE POT 875/125 MG TAB PO SCH (09:43)
[2018-09-21] MEDS: DILTIAZEM 60 MG TAB PO SCH (09:43)
[2018-09-21] MEDS: DUTASTERIDE 0.5 MG CAP PO SCH (09:43)
--- NOTE | 2018-09-21 15:40 | PDIAF ---
- Diagnosis Diagnosis: Cholecystitis Code Status: Full Code - Medication Management Discharge Medications: electronically signed and located in the Home Medication List. - Orders Services needed: Home Care, Registered Nurse, Physical Therapy, Occupational Therapy Home Care Face to Face: I certify that this patient was under my care and that I had the required [id number] encounter meeting the encounter requirements on the discharge day. My findings support the fact that the patient is homebound as defined in Home Care Face to Face Continued: CMS Chapter 7 Medicare Benefits Manual 30.1.1 , The condition of the patient is such that there exists a normal inability to leave home and consequently, leaving home would require a considerable and taxing effort. Isolation Type: None Diet Recommendation: no restrictions on diet Diet Texture: Regular Texture Diet Additional Instructions: No heavy lifting or strenuous activity for 2 weeks, walking daily is encouraged Your stamina and energy level will take some time to return to normal, you are encouraged to eat a good healthy well-rounded diet each day Shower daily, no tub bathing or soaking the incisions for 2 weeks - Follow Up Care Current Providers and Referrals: Jeremias Bowie MD [Medical Doctor] - follow up in 2 weeks Patient,NotPresent [Unknown] - As per Instructions
--- NOTE | 2018-09-21 16:09 | ASMTDCNOTE ---
Case Management Discharge Discharge Order Complete? Answers: Yes Patient to Obtain Answers: Other Notes: [facility] Medications Care Transportation Arranged Answers: Family/Friends Transport will Pick (Date 09/21/2018 12:00 AM & Time) Faxed Final Orders Answers: Yes Notes: [facility] Agency/Facility Transfer Answers: Yes Notes: [facility] Report Printed & Faxed to Receiving Agency Family Notified Answers: Yes Notes: son, Romulo Discharge Comments Notes: Patient is discharging home today with [facility] and patient's son is arranging for an 8 hour a day caregiver/commercial lending assistant for his dad to help with bathing, personal errands, etc. Patient has an insurance policy that covers 24/hr care in the home for both himself and his . Spoke with Romulo today who will leaf size picker his dad this evening to transport him back home. Discharge summaries were Allscripted to [facility]. No further needs. Date Signed: 09/21/2018 04:08 PM Electronically Signed By:Fide York LCSW
--- NOTE | 2018-09-21 16:10 | ASMTLACE ---
LACE Length of stay for Answers: 4-6 days current admission Acuity / Level of Answers: Yes Care: Did the patient have an inpatient admission? Comorbidities - select Answers: Other Notes: afib, BPH, HTN all that apply # of Emergency department Answers: 1-2 visits in the last 6 months Score: 9 Date Signed: 09/21/2018 04:09 PM Electronically Signed By:Fide York LCSW
--- NOTE | 2018-09-21 16:14 | ASDISCHSUM ---
Discharge Information Plan Status:Home with Home Health Medically Cleared to Leave:09/21/2018 Discharge Date:09/21/2018 CM D/C Disposition:Home Health Service [facility] D/C Disposition:Home, Routine, Self-Care Projected Discharge Date:09/21/2018 11:00 AM Transportation at D/C:Family Discharge Delay Reason: Follow-Up Date:09/21/2018 11:00 AM Discharge Slot:2 - 12:01 pm - 18:00 pm Final Diagnosis:Cholecystitis Placement Information Referral Type:*Home Health Care Services Referral ID:[id number] Provider Name:Liat Manzanares [place] Address 1:[address] [place] [address] Phone Number: Address 2: Fax Number: [facility]:[place] Selection Factors: State:[place] Patient Contact Information Contact Name:NICOLÁS Relationship: Address:[address] [place] [address] City:[place] Alternate Phone: State/Zip Code:[place] [address] Email: Financial Information Financial Class:Medicare Advantage Plans Primary Plan Desc:[employer] MEDICARE ADV Primary Plan Number:[id number] Secondary Plan Desc: Secondary Plan Number: Assessment Information LACE LACE Length of stay for Answers: 4-6 days current admission Acuity / Level of Answers: Yes Care: Did the patient have an inpatient admission? Comorbidities - select Answers: Other Notes: afib, BPH, HTN all that apply # of Emergency department Answers: 1-2 visits in the last 6 months Score: 9 Date Signed: 09/21/2018 04:09 PM Electronically Signed By:Fide York LCSW [facility] CM Progress Note CM Note CM Note Notes: Pt has been admitted with weakness and fever. An MRCP and lap cholecystectomy are pending. He has had [facility] in the past. Pt lives with his in [place]. CM will follow for any d/c needs. D/C needs: TBD Date Signed: 09/18/2018 03:22 PM Electronically Signed By:ELLEN Gallegos [facility] CM Progress Note CM Note CM Note Notes: CM met with pt. Pt reports that he would like to discharge to [facility] Homecare. [facility] was sent a referral. CM to follow. Plan: [facility] HomeCare PT Date Signed: 09/19/2018 04:09 PM Electronically Signed By:Eva Phoenix [facility] CM Progress Note CM Note CM Note Notes: Spoke with patient's son Romulo who is in agreement with PT recommendation for home health care. Romulo states patient is wanting to be independent but he needs help. His personal hygiene is deteriorating and he is not able to keep up with a lot of daily activities, per son Romulo. Romulo states they already have [email or web address] working with his mother and he would like them to also work with his father. A referral was made to [email or web address] for the patient. Romulo plans to hire an 8 hour a day caregiver to help his father with personal activities. He requests a social work consult to help his father be more accepting of support and help. CM/director social welfare will follow up with the patient per Romulo's request. D/C plan is [facility] and an 8hour toddler caregiver arranged by patient's son Romulo. CM will follow Date Signed: 09/20/2018 12:59 PM Electronically Signed By:Fide York LCSW Case Management Discharge Plan Note Case Management Discharge Discharge Order Complete? Answers: Yes Patient to Obtain Answers: Other Notes: [facility] Medications Care Transportation Arranged Answers: Family/Friends Transport will Pick (Date 09/21/2018 12:00 AM & Time) Faxed Final Orders Answers: Yes Notes: [facility] Agency/Facility Transfer Answers: Yes Notes: [facility] Report Printed & Faxed to Receiving Agency Family Notified Answers: Yes Notes: sonRomulo Discharge Comments Notes: Patient is discharging home today with [facility] and patient's son is arranging for an 8 hour a day caregiver/district administrative assistant for his dad to help with bathing, personal errands, etc. Patient has an insurance policy that covers 24/hr care in the home for both himself and his . Spoke with Romulo today who will pickle pumper his dad this evening to transport him back home. Discharge summaries were Allscripted to [facility]. No further needs. Date Signed: 09/21/2018 04:08 PM Electronically Signed By:Fide York LCSW Intervention Information Intervention Type:*Incorrect Registration Date of Service:09/18/2018 10:09 AM Patient Type:Observation Staff Member:JUVENTINO Tabares Patricia Hours: Discipline: Severity: Comment:
--- NOTE | 2018-09-21 18:13 | GDS ---
[f rep st] DISCHARGE SUMMARY DISCHARGE DIAGNOSES: 1. Sepsis. 2. Cholecystitis, choledocholithiasis. 3. Escherichia coli bacteremia. 4. Atrial fibrillation. 5. BPH. 6. Hypertension. 7. Hypokalemia. 8. Hyperbilirubinemia. PROCEDURES: 1. Endoscopic retrograde cholangiopancreatography by Dr. Gauthier. 2. Laparoscopic cholecystectomy by Dr. Bowie. HISTORY OF PRESENT ILLNESS: A pleasant 87-year-old male with atrial fibrillation presents with fever and weakness. In the ER, he was febrile to 104, tachycardic, with elevated LFTs. Ultrasound was no table for gallstones and chronic cholecystitis. General Surgery was consulted. MRCP was performed t hat showed common bile duct stones. GI performed ERCP and patient had open laparoscopic cholecystect moni. HOSPITAL COURSE BY PROBLEM: 1. Sepsis: Secondary to E coli bacteremia from gallbladder, now resolved. 2. Cholecystitis/choledocholithiasis: MRCP showed CBD stones, thus underwent ERCP prior to laparosc opic cholecystectomy. He had no complications. 3. E coli bacteremia: Secondary to biliary source. He did very well here, remained afebrile withou t leukocytosis. He was transitioned to Augmentin to complete a total of 7 days. 4. Atrial fibrillation, rate controlled. Continue diltiazem, restart his Eliquis. 5. Hypokalemia, repleted. 6. Hyperbilirubinemia, trended down. 7. Deconditioning: Will be discharged home with [facility] PT/OT nurse. Son is arranging 8 hours of private home care. DISPOSITION: Patient stable for discharge home with home care. NEW MEDICATIONS: Augmentin. FOLLOWUP: 1. Dr. Bowie. 2. Primary care physician. PHYSICAL EXAM: VITAL SIGNS: Today temperature 36.6, blood pressure 125/72, heart rate in the 60s, r espirations 16, and 92% on room air. GENERAL: He sitting up in no acute distress. HEENT: PERRLA. Moist mucous membranes. CV: Regular rate and rhythm. LUNGS: Clear. ABDOMEN: Soft, nontender. Cholecystectomy incision sites dry, clean, and intact. NEURO: 2 through 12 intact. PSYCH: Alert, answering questions appropriately. Time spent on discharge: Greater than 30 minutes. /[id number]/MODL
== END 2018-09-21 17:06 | disposition home health service (06) | DRG 854 ==
LOC: EDUNIT# → F3E 21:19 → OBSVTOIN 21:44
PROVIDERS: ADMIT Internal Medicine; ATTEND Internal Medicine
PROC: 0FC98ZZ Extirpation of Matter from Common Bile Duct, Via Natural or Artificial Opening Endoscopic (ICD-10-PCS; 2018-09-19)
PROC: [UNRECOGNIZED PROCEDURE] (principal; 2018-09-20 07:15)
DX: A41.51 Sepsis due to Escherichia coli [E. coli] (principal); K80.34 Calculus of bile duct with chronic cholangitis without obstruction; R78.81 Bacteremia; I48.91 Unspecified atrial fibrillation; N40.0 Benign prostatic hyperplasia without lower urinary tract symptoms; I10 Essential (primary) hypertension; E87.6 Hypokalemia; E80.6 Other disorders of bilirubin metabolism
CPT/HCPCS: 96374; 97116-GP; 97161-GP; 97165-GO; 97530-GP; A9585; J0696; J1100; J1170; J1335; J2001; J2405; J2704; J3010; Q9961